=== PATIENT | female | born 1950 | race Caucasian/White ===

== ENCOUNTER 2023-04-01 20:21 | Emergency (ER) | payer MEDICARE, OTHER ==
[~2023-04-01] VITALS: Ht 167.6 cm; Wt 68.0 kg
[2023-04-01 20:23] VITALS: BP 154/94
== END 2023-04-01 22:22 | disposition home or self-care (01) ==
LOC: ER 20:21
DX: S05.02XA Injury of conjunctiva and corneal abrasion without foreign body, left eye, initial encounter (principal); X58.XXXA Exposure to other specified factors, initial encounter
CPT/HCPCS: 96372; 99283-25; A9270; J1885